=== PATIENT | female | born 1950 | race Two or more races ===

== ENCOUNTER 2018-07-24 06:13 | Day surgery (SDC) | payer OTHER ==
[~2018-07-24 06:13] MED LIST: COREG CR10 MG PO; COZAAR100 MG PO; JANUMET 50-1,01 EACH PO; JARDIANCE25 MG PO; LOTREL 5-20 MG1 CAP PO; NORVASC2.5 M1 PO; SYNTROID PO; [UNRECOGNIZED DRUG - OTHER] PO
== END 2018-07-24 10:55 | disposition home or self-care (01) ==
LOC: CIR.AMB 06:13
DX: D10.1 Benign neoplasm of tongue (principal)